=== PATIENT | male | born 1980 | race African-American/Black ===

== ENCOUNTER 2016-07-26 12:10 | Emergency (ER) | payer SELFPAY ==
[2016-07-26] MEDS ORDERED: OXYCODONE-ACETAMINOPHEN 5-325 MG TABLET PO ONE (12:54)
--- NOTE | 2016-07-26 12:54 | ER Document Report ---
ED Medical Screen (RME) - General Chief Complaint: Headache Stated Complaint: HEADACHE,BUMP ON RIGHT CORNEA Notes: 36 yo male c/o headache, right sided. + sinus pressure, nose bleeds since last week. pt was seen in ED last week for same, treated with pain med, decongestant and nasal spray. ringing in right ear. low grade fever. + pain into right neck. TRAVEL OUTSIDE OF THE [place] IN LAST 30 DAYS: No - Related Data Allergies/Adverse Reactions: tramadol [Tramadol] Allergy (Verified 07/26/16 12:34) Past Medical History - Social History Chew tobacco use (# tins/day): No Frequency of alcohol use: None Drug Abuse: None - Past Medical History Cardiac Medical History: Reports: Hx Heart Attack - mini- PT REPORTS HE WAS TOLD HE HAD A HEART ATTACK IN 12-27 PT BROUGHT TO [facility]. Neurological Medical History: Reports: Hx Migraine Endocrine Medical History: Denies: Hx Diabetes Mellitus Type 1, Hx Diabetes Mellitus Type 2 Musculoskeltal Medical History: Reports Hx Arthritis - Immunizations Immunizations up to date: No Hx Diphtheria, Pertussis, Tetanus Vaccination: Yes - Tetanus is up to date Physical Exam - Vital signs Vitals: Temp Pulse Resp BP Pulse Ox 98.3 F 76 16 136/68 H 97 07/26/16 12:36 07/26/16 12:36 07/26/16 12:36 07/26/16 12:36 07/26/16 12:36 Course - Vital Signs Vital signs: Temp Pulse Resp BP Pulse Ox 98.3 F 76 16 136/68 H 97 07/26/16 12:36 07/26/16 12:36 07/26/16 12:36 07/26/16 12:36 07/26/16 12:36
--- NOTE | 2016-07-26 15:08 | ER Document Report ---
ED General - General Chief Complaint: Headache Stated Complaint: HEADACHE,BUMP ON RIGHT CORNEA Time seen by provider: 15:06 Mode of Arrival: Ambulatory Information source: Patient Notes: This is a 36-year-old man with a history of migraines who presents to the emergency room with sinus congestion, postnasal drip, subjective chills, and a right-sided headache consistent with his migraines. Patient states his been using Benadryl and intake and Imperial without significant relief. TRAVEL OUTSIDE OF THE [place] IN LAST 30 DAYS: No - HPI Onset: Last week Onset/Duration: Gradual Quality of pain: Dull Severity: Moderate Pain Level: 2 Associated symptoms: Nonproductive cough, Sinus pain/drainage. denies: Chills, Fever, Nausea, Vomiting, Shortness of breath Exacerbated by: Denies Relieved by: Denies Similar symptoms previously: Yes Recently seen / treated by doctor: Yes - Related Data Allergies/Adverse Reactions: tramadol [Tramadol] Allergy (Verified 07/26/16 12:34) Past Medical History - General Information source: Patient - Social History Smoking Status: Former Smoker Chew tobacco use (# tins/day): No Frequency of alcohol use: None Drug Abuse: None Lives with: Family Family History: Reviewed & Not Pertinent Patient has suicidal ideation: No Patient has homicidal ideation: No - Past Medical History Cardiac Medical History: Reports: Hx Heart Attack - mini- PT REPORTS HE WAS TOLD HE HAD A HEART ATTACK IN - PT BROUGHT TO [facility]. Neurological Medical History: Reports: Hx Migraine Endocrine Medical History: Denies: Hx Diabetes Mellitus Type 1, Hx Diabetes Mellitus Type 2 Musculoskeltal Medical History: Reports Hx Arthritis Surgical Hx: Negative - Immunizations Immunizations up to date: No Hx Diphtheria, Pertussis, Tetanus Vaccination: Yes - Tetanus is up to date Review of Systems - Review of Systems Constitutional: denies: Chills, Fever EENT: See HPI Cardiovascular: No symptoms reported Respiratory: No symptoms reported Gastrointestinal: No symptoms reported Genitourinary: No symptoms reported Male Genitourinary: No symptoms reported Musculoskeletal: No symptoms reported Skin: No symptoms reported Hematologic/Lymphatic: No symptoms reported Neurological/Psychological: See HPI Physical Exam - Vital signs Vitals: Temp Pulse Resp BP Pulse Ox 98.3 F 76 16 136/68 H 97 07/26/16 12:36 07/26/16 12:36 07/26/16 12:36 07/26/16 12:36 07/26/16 12:36 Notes: Physical exam: GENERAL: 36-year-old man, alert and oriented 3, no acute distress HEAD: Atraumatic, normocephalic. EYES: Pupils equal round and reactive to light, extraocular movements intact, sclera anicteric, conjunctiva are normal. No lesions appreciated. ENT: TMs normal, nares congested, oropharynx reveals posterior pharynx discharge. Moist mucous membranes. Maxillary sinus tenderness to palpation. NECK: Normal range of motion, supple without lymphadenopathy or JVD. LUNGS: Breath sounds clear to auscultation bilaterally and equal. No wheezes rales or rhonchi. HEART: Regular rate and rhythm without murmurs, rubs or gallops. ABDOMEN: Soft, nontender, normoactive bowel sounds. No guarding, no rebound. No masses appreciated. EXTREMITIES: Normal range of motion, no pitting or edema. No clubbing or cyanosis. NEUROLOGICAL: Cranial nerves II through XII grossly intact. Motor 5 over 5, sensory grossly intact, cerebellar intact, Normal speech, normal gait, neck supple, no meningismus. PSYCH: Normal mood, normal affect. SKIN: Warm, Dry, normal turgor, no rashes or lesions noted. Course - Vital Signs Vital signs: Temp Pulse Resp BP Pulse Ox 98.3 F 76 16 136/68 H 97 07/26/16 12:36 07/26/16 12:36 07/26/16 12:36 07/26/16 12:36 07/26/16 12:36 Discharge - Discharge Clinical Impression: acute sinusitis, migraine headache Condition: Stable Disposition: HOME, SELF-CARE Instructions: Oral Narcotic Medication ([facility]), Sinusitis ([facility]), Migraine Headache ([facility]) Additional Instructions: Recommendations: Rest, drink plenty of fluids. Take the antibiotics as prescribed. Take the Percocet as needed. Also take Excedrin migraine (take the preparation that has only caffeine and aspirin). Avoid Benadryl: This may dry you out too much and can result in sinus blockages. Use "simply saline"nasal spray twice daily in both nostrils: This will keep the nasal passages moist so that they can drain so that the sinuses can empty and he 'll. Follow-up with a migraine specialist: I left the number for Dr Tom who is a neurologist. Prescriptions: Amox Tr/Potassium Clavulanate [Augmentin 875-125 Tablet] 1 tab PO BID #20 tablet Oxycodone HCl/Acetaminophen [Percocet 5-325 mg Tablet] 1 - 2 tab PO ASDIR PRN # 25 tablet PRN Reason: Referrals: AMARA TOM MD [ACTIVE STAFF] - Follow up as needed (Call tomorrow for the next available appointment: It may take a while to get into the office.)
[2016-07-26 17:52] VITALS: BP 121/65
== END 2016-07-26 16:40 | disposition home or self-care (01) ==
LOC: ER 12:10
DX: J01.90 Acute sinusitis, unspecified (principal); G43.909 Migraine, unspecified, not intractable, without status migrainosus; Z87.891 Personal history of nicotine dependence; I25.2 Old myocardial infarction
CPT/HCPCS: 99283

== ENCOUNTER 2017-04-17 15:38 | Emergency (ER) | payer SELFPAY ==
[2017-04-17 16:01] VITALS: BP 118/73
--- NOTE | 2017-04-17 18:07 | ER Document Report ---
ED General - General Chief Complaint: Abscess Stated Complaint: CONGESTION AND ABSCESS Time Seen by Provider: 04/17/17 18:06 Notes: The patient is a 37-year-old male who presents with several weeks of right lower molar dental pain and he thinks a dental abscess is forming. He is also having a dry cough and nasal congestion. He tried to see a dentist, but did not have the $200 to see the dentist. Patient denies difficulty swallowing, fevers, shortness of breath, chest pain or recent travel. TRAVEL OUTSIDE OF THE [place] IN LAST 30 DAYS: No - Related Data Allergies/Adverse Reactions: tramadol [Tramadol] Allergy (Verified 07/26/16 12:34) Past Medical History - General Information source: Patient - Social History Smoking Status: Current Every Day Smoker Chew tobacco use (# tins/day): No Frequency of alcohol use: Rare Drug Abuse: None Family History: Reviewed & Not Pertinent Patient has suicidal ideation: No Patient has homicidal ideation: No - Past Medical History Cardiac Medical History: Reports: Hx Heart Attack - mini- PT REPORTS HE WAS TOLD HE HAD A HEART ATTACK IN 12-27 PT BROUGHT TO [facility]. Neurological Medical History: Reports: Hx Migraine Endocrine Medical History: Denies: Hx Diabetes Mellitus Type 1, Hx Diabetes Mellitus Type 2 Renal/ Medical History: Denies: Hx Peritoneal Dialysis Musculoskeltal Medical History: Reports Hx Arthritis Surgical Hx: Negative - Immunizations Immunizations up to date: No Hx Diphtheria, Pertussis, Tetanus Vaccination: Yes - Tetanus is up to date Review of Systems - Review of Systems Notes: REVIEW OF SYSTEMS: CONSTITUTIONAL: -fevers, -chills EENT: -eye pain, -difficulty swallowing, +nasal congestion, +dental pain CARDIOVASCULAR:-chest pain, -syncope. RESPIRATORY: +cough, -SOB GASTROINTESTINAL: -abdominal pain, - nausea, -vomiting, -diarrhea GENITOURINARY: -dysuria, -hematuria MUSCULOSKELETAL: -back pain, -neck pain SKIN: -rash or skin lesions. HEMATOLOGIC: -easy bruising or bleeding. LYMPHATIC: -swollen, enlarged glands. NEUROLOGICAL: -altered mental status or loss of consciousness, -headache, - neurologic symptoms PSYCHIATRIC: -anxiety, -depression. ALL OTHER SYSTEMS REVIEWED AND NEGATIVE. Physical Exam - Vital signs Vitals: Temp Pulse Resp BP Pulse Ox 98 F 59 L 20 118/73 97 04/17/17 15:59 04/17/17 15:59 04/17/17 15:59 04/17/17 15:59 04/17/17 15:59 - Notes Notes: PHYSICAL EXAMINATION: GENERAL: Well-appearing, well-nourished and in no acute distress. HEAD: Atraumatic, normocephalic. EYES: Pupils equal round and reactive to light, extraocular movements intact, sclera anicteric, conjunctiva are normal. ENT: nares patent, oropharynx clear without exudates. Moist mucous membranes. Right lower 2nd molar with mild gum swelling and cavity. Nasal congestion. NECK: Normal range of motion, supple without lymphadenopathy LUNGS: Breath sounds clear to auscultation bilaterally and equal. No wheezes rales or rhonchi. HEART: Regular rate and rhythm without murmurs ABDOMEN: Soft, nontender, normoactive bowel sounds. No guarding, no rebound. No masses appreciated. EXTREMITIES: Normal range of motion, no pitting or edema. No cyanosis. NEUROLOGICAL: Cranial nerves grossly intact. Normal speech, normal gait. Normal sensory and motor exams. PSYCH: Normal mood, normal affect. SKIN: Warm, Dry, normal turgor, no rashes or lesions noted. Course - Re-evaluation Re-evalutation: Patient appears well and is in no distress. Patient started on penicillin for dental abscess and instructions to follow-up with the dentist. - Vital Signs Vital signs: Temp Pulse Resp BP Pulse Ox 98 F 59 L 20 118/73 97 04/17/17 15:59 04/17/17 15:59 04/17/17 15:59 04/17/17 15:59 04/17/17 15:59 Discharge - Discharge Clinical Impression: Dental abscess URI (upper respiratory infection) Qualifiers: URI type: unspecified URI Qualified Code(s): J06.9 - Acute upper respiratory infection, unspecified Condition: Stable Disposition: HOME, SELF-CARE Additional Instructions: Take the antibiotics as prescribed, Motrin for pain and apply the lidocaine jelly to help with any pain. You must follow-up with the dentist. Stop smoking. TOOTHACHE: Your pain is due to dental decay. The tooth must be repaired in order for you to feel better. You will, therefore, be referred to a dentist. We do not have dentists on the staff at [facility]. Severe swelling or drainage around a tooth usually means a dental abscess. This also requires evaluation and treatment by the dentist, but antibiotics may be prescribed while awaiting dental treatment. You should be rechecked immediately if you develop major swelling of the face, increasing pain, a lump in the jaw or gums, headache, difficulty swallowing, or fever. PENICILLIN V K: You have been given a prescription for Penicillin VK. Your physician has determined that this is the best antibiotic for your condition. Pen VK can be taken with meals, however more of the antibiotic gets into the bloodstream if it's taken on an empty stomach. Penicillin usually has no side effects. However, allergy to penicillins is common. If you have had an allergic reaction to any drug of the penicillin family, you should never take any other penicillin. Notify your doctor at once if you develop hives, itching, swelling, faintness, or shortness of breath. FOLLOW-UP CARE: You have been referred for follow-up care to the dentists listed below. Call the dentists office for an appointment as you were instructed or within the next two days. If you experience worsening or a significant change in your symptoms, notify the physician immediately or return to the Emergency Department at any time for re-evaluation. [facility] [address] [place], [place] Sunday mornings, by appointment [facility] [address] [place] [address] [facility] [address] [facility] [address] [facility] (4th) [facility] [place] [facility] [address] [facility] [facility] [email or web address] [address] [place] [address] Sunday- 8:00am to 5:00 pm Will see patients from other [facility]. Charges based on income and family size and accepts Medicare, Medicaid, and Insurances Will pull molars [facility] [place] [address] Hours of Operation 8:00 am - 4:30 pm weekdays The following dental offices accept Medicaid: [facility] Dr. C[address] Dr. Hollins Dr. [address] Dr. Rivas Sean Mann, Yinka, and Raj oral surgery Dr. Pastor ([place]) Dr. Hernandez ([place]) [facility] Drs. Menendez and Wayne ([place]) Dr. Brown ([place]) [facility] Dr. Monk ([place]) Drs. Mojica and ([place]) Medicaid Care Line UPPER RESPIRATORY ILLNESS: You have a viral infection of the respiratory passages -- a "cold." This common infection causes nasal congestion, drainage, and often sore throat and cough. It is highly contagious. The disease usually lasts about 10 to 14 days. There is no "cure" for the viral infection -- it must run its course. If there is a complication, such as bacterial infection in the nose, sinuses, middle ear, or bronchial tubes, antibiotics may be required. The antibiotics won't affect the virus. Drink plenty of fluids. A humidifier may help. An expectorant medication or decongestant may make you more comfortable. Use acetaminophen or ibuprofen for fever or aches. See the doctor if fever persists over two days, if there is any significant worsening of your symptoms, or if you simply fail to improve as expected. USE OF ACETAMINOPHEN (Tylenol): Acetaminophen may be taken for pain relief or fever control. It's much safer than aspirin, offering a wider range of "safe" dosages. It is safe during . Some brand names are Tylenol, Panadol, Datril, Anacin 3, Tempra, and Liquiprin. Acetaminophen can be repeated every four hours. The following are maximum recommended dosages: >89 pounds or adults 650 mg to 900 mg Acetaminophen can be repeated every four hours. Maximum dose not to exceed 4000 mg a day. SMOKING: If you smoke, you should stop smoking. The tar and chemicals in cigarette smoke are harmful. Smoking has been shown to cause: emphysema chronic bronchitis lung cancer mouth and throat cancer stomach and pancreas cancer premature aging defects In addition, smoking increases ear and lung infections in children of smokers. FOLLOW-UP CARE: If you have been referred to a physician for follow-up care, call the physician s office for an appointment as you were instructed or within the next two days. If you experience worsening or a significant change in your symptoms, notify the physician immediately or return to the Emergency Department at any time for re-evaluation. Prescriptions: Penicillin V Potassium [Penicillin Vk 500 mg Tablet] 500 mg PO BID #20 tablet Penicillin V Potassium [Penicillin Vk 500 mg Tablet] 500 mg PO BID #20 tablet
[2017-04-17] MEDS ORDERED: PENICILLIN V POTASSIUM 500 MG TABLET PO ONE (18:51)
[2017-04-17] MEDS ORDERED: LIDOCAINE 2% VISCOUS SOLN 20 ML UDCUP PO ONE (18:51)
== END 2017-04-17 19:10 | disposition home or self-care (01) ==
LOC: ER 15:38
DX: K04.7 Periapical abscess without sinus (principal); K02.9 Dental caries, unspecified; R05 Cough; F17.200 Nicotine dependence, unspecified, uncomplicated; R09.81 Nasal congestion; Z59.9 Problem related to housing and economic circumstances, unspecified; Z88.5 Allergy status to narcotic agent
CPT/HCPCS: 99283; J3490

== ENCOUNTER 2019-05-31 19:02 | Emergency (ER) | payer SELFPAY ==
[2019-05-31] MEDS ORDERED: LIDOCAINE 1% INJ-PF (10 MG/ML) 30 ML SDV INJ ONE (19:22)
[2019-05-31] MEDS ORDERED: DIPH/PERTUSS(ACELL)/TETANUS VAC/PF 0.5 ML SYR (>=10YO) IM ONE (19:22)
--- NOTE | 2019-05-31 19:23 | ER Document Report ---
ED Medical Screen (RME) - General Chief Complaint: Laceration Stated Complaint: FINGER LACERATION Time Seen by Provider: 05/31/19 19:22 Mode of Arrival: Ambulatory Information source: Patient Notes: Patient was at work and finger got cut by a carpet blade this afternoon. Patient with laceration to the radial aspect of the left second finger. I have greeted and performed a rapid initial assessment of this patient. A comprehensive ED assessment and evaluation of the patient, analysis of test results and completion of the medical decision making process will be conducted by additional ED providers. TRAVEL OUTSIDE OF THE [place] IN LAST 30 DAYS: No - Related Data Allergies/Adverse Reactions: tramadol [Tramadol] Allergy (Verified 07/26/16 12:34) Past Medical History - Social History Chew tobacco use (# tins/day): No Frequency of alcohol use: quit Drug Abuse: None - Past Medical History Cardiac Medical History: Reports: Hx Heart Attack - mini- PT REPORTS HE WAS TOLD HE HAD A HEART ATTACK IN 12-27 PT BROUGHT TO [facility] Hx Hypertension Neurological Medical History: Reports: Hx Migraine Endocrine Medical History: Denies: Hx Diabetes Mellitus Type 1, Hx Diabetes Mellitus Type 2 Renal/ Medical History: Denies: Hx Peritoneal Dialysis Musculoskeltal Medical History: Reports Hx Arthritis - Immunizations Immunizations up to date: No Hx Diphtheria, Pertussis, Tetanus Vaccination: Yes - Tetanus is up to date Physical Exam - Vital signs Vitals: Temp Pulse Resp BP Pulse Ox 99.0 F 64 16 116/74 100 05/31/19 19:17 05/31/19 19:17 05/31/19 19:17 05/31/19 19:17 05/31/19 19:17 - General General appearance: Appears well, Alert Notes: Laceration to the radial aspect of her left second finger Course - Vital Signs Vital signs: Temp Pulse Resp BP Pulse Ox 99.0 F 64 16 116/74 100 05/31/19 19:17 05/31/19 19:17 05/31/19 19:17 05/31/19 19:17 05/31/19 19:17
--- NOTE | 2019-05-31 19:44 | ER Document Report ---
ED General - General Chief Complaint: Laceration Stated Complaint: FINGER LACERATION Time Seen by Provider: 05/31/19 19:22 Primary Care Provider: [facility] [Provider Group] - Follow up in 1 week Mode of Arrival: Ambulatory TRAVEL OUTSIDE OF THE [place] IN LAST 30 DAYS: No - HPI Notes: 39-year-old male to the emergency department with complaints of a laceration to his left index finger that occurred this afternoon. Patient states that he was working with a partner at work when he got cut by a carpet blade. He states that he is not up-to-date on his immunizations. He states he is ambidextrous. He denies any weakness in the finger or any numbness or tingling. He does state that his pain does radiate up and to his hand and arm. - Related Data Allergies/Adverse Reactions: tramadol [Tramadol] Allergy (Verified 07/26/16 12:34) Past Medical History - General Information source: Patient - Social History Smoking Status: Current Every Day Smoker Chew tobacco use (# tins/day): No Frequency of alcohol use: quit Drug Abuse: None Family History: Reviewed & Not Pertinent Patient has suicidal ideation: No Patient has homicidal ideation: No - Past Medical History Cardiac Medical History: Reports: Hx Heart Attack - mini- PT REPORTS HE WAS TOLD HE HAD A HEART ATTACK IN - PT BROUGHT TO [facility] Hx Hypertension Neurological Medical History: Reports: Hx Migraine Endocrine Medical History: Denies: Hx Diabetes Mellitus Type 1, Hx Diabetes Mellitus Type 2 Renal/ Medical History: Denies: Hx Peritoneal Dialysis Musculoskeletal Medical History: Reports Hx Arthritis - Immunizations Immunizations up to date: No Hx Diphtheria, Pertussis, Tetanus Vaccination: Yes - Tetanus is up to date Review of Systems - Review of Systems Constitutional: denies: Chills, Fever EENT: No symptoms reported Cardiovascular: No symptoms reported Respiratory: No symptoms reported. denies: Cough, Short of breath Gastrointestinal: denies: Abdominal pain, Diarrhea, Nausea, Vomiting Genitourinary: No symptoms reported Musculoskeletal: See HPI, Joint pain - Finger pain Skin: Other - Laceration to the left index finger Neurological/Psychological: No symptoms reported -: Yes All other systems reviewed and negative Physical Exam - Vital signs Vitals: Temp Pulse Resp BP Pulse Ox 99.0 F 64 16 116/74 100 05/31/19 19:17 05/31/19 19:17 05/31/19 19:17 05/31/19 19:17 05/31/19 19:17 Interpretation: Normal - General General appearance: Appears well, Alert - HEENT Head: Normocephalic, Atraumatic Eyes: Normal Pupils: PERRL - Respiratory Respiratory status: No respiratory distress Chest status: Nontender Breath sounds: Normal Chest palpation: Normal - Cardiovascular Rhythm: Regular Heart sounds: Normal auscultation Murmur: No - Abdominal Inspection: Normal Distension: No distension Bowel sounds: Normal Tenderness: Nontender Organomegaly: No organomegaly - Skin Skin Temperature: Warm Skin Moisture: Dry Skin irregularity: Laceration - There is a 2.5 cm laceration to the left index finger along the radial edge. Patient has 5 out of 5 strength against resistance in his flexion of the left index finger at the flexor digitorum profundus and digitorum superficialis as well as the extensor digitorum. He has 5 out of 5 strength in all other fingers against resistance as well. Cap r efill is less than 2 seconds. Adduction and abduction are intact in the fingers against resistance with 5 out of 5 strength as well. Radial pulses are intact and equal. Course - Re-evaluation Re-evalutation: 05/31/19 21:14 Impression: Left index finger laceration. Patient tolerated repair well. We will send home with Keflex because his hands were little bit dirty during the incident. Also send home with the etodolac. Patient agrees with the plan. - Vital Signs Vital signs: Temp Pulse Resp BP Pulse Ox 99.0 F 64 16 116/74 100 05/31/19 19:17 05/31/19 19:17 05/31/19 19:17 05/31/19 19:17 05/31/19 19:17 Procedures - Immobilization Left Finger 2nd digit Time completed: 21:15 Pre-Proc Neuro Vasc Exam: Normal Immobilizer type: Finger splint (Static) Performed by: RN - Fingers Post-Proc Neuro Vasc Exam: Normal Alignment checked and good: Yes - Laceration/Wound Repair Left Finger 2nd digit Time completed: 21:00 Wound length (cm): 2.5 Wound's Depth, Shape: Superficial Laceration pre-procedure: Sterile PPE donned, Betadine prep applied, Sterile drapes applied, Shur-Clens applied Anesthetic type: 1% Lidocaine Volume Anesthetic (mLs): 5 Wound explored: Clean, No foreign body removed Irrigated w/ Saline (mLs): 50 Wound Debrided: Minimal Wound Repaired With: Sutures Suture Size/Type: 5:0 Number of Sutures: 5 Post-procedure wound care: Sterile dressing applied, Splint applied Post-procedure NV exam normal: Yes Complications: No Discharge - Discharge Clinical Impression: Laceration of left index finger Qualifiers: Encounter type: initial encounter Damage to nail status: without damage Foreign body presence: without foreign body Qualified Code(s): S61.211A - Laceration without foreign body of left index finger without damage to nail, initial encounter Condition: Stable Disposition: HOME, SELF-CARE Instructions: Laceration Care ([facility]) Additional Instructions: SUTURE REMOVAL IN 7 DAYS. WEAR SPLINT. COMPLETE ANTIBIOTICS. Prescriptions: Etodolac 200 mg PO BID #16 capsule Cephalexin Monohydrate [Keflex 500 mg Capsule] 500 mg PO Q6H 7 Days #28 capsule Referrals: [facility] [Provider Group] - Follow up in 1 week
[2019-05-31 21:26] VITALS: BP 124/81
== END 2019-05-31 21:20 | disposition home or self-care (01) ==
LOC: ER 19:02
DX: S61.211A Laceration without foreign body of left index finger without damage to nail, initial encounter (principal); W27.8XXA Contact with other nonpowered hand tool, initial encounter; Y93.89 Activity, other specified; Y99.0 Civilian activity done for income or pay; F17.200 Nicotine dependence, unspecified, uncomplicated; Z23 Encounter for immunization
CPT/HCPCS: 90715; 12001; J3490